=== PATIENT | male | born 1960 | race Caucasian/White ===

== ENCOUNTER 2017-04-02 05:22 | Emergency (ER) | payer OTHER ==
--- NOTE | ~2017-04-02 | ER ---
PATIENT'S NAME: RAFAEL AGUILLON [facility] AGE: 56 Y [address] ROOM: [place] [address] LOCATION: [facility] ADMIT DATE: 04/02/2017 ER/Outpatient Report DISCHARGE DATE: 04/02/2017 FAMILY PHYSICIAN: Charity Walker MD ATTENDING PHYSICIAN: Charity Sue Time of Arrival: 0521 hours. Time of Evaluation: 0545 hours. CHIEF COMPLAINT: Left wrist pain. HISTORY OF PRESENT ILLNESS: The patient is a 56-year-old male, who presents to the emergency department today with chief complaint of left wrist pain. He reports he fell approximately 24 hours prior to arrival on outstretched arm. He has pain in his left wrist. It is sharp, it is worse with movement, currently moderate in severity. Denies any head injury. No other injuries noted. He has been taking some Tylenol as well as using ice. PAST MEDICAL HISTORY: Hypertension. PAST SURGICAL HISTORY: None reported. SOCIAL HISTORY: The patient smokes a pack per day for 40 years and drinks alcohol daily. Denies any illicit drug use. ALLERGIES: NO KNOWN DRUG ALLERGIES. MEDICATIONS: Please see list. PRIMARY CARE DOCTOR: Charity Walker M.D. REVIEW OF SYSTEMS: All systems are reviewed by myself and are negative with the exception of those discussed in the HPI and past medical history. PHYSICAL EXAMINATION: VITAL SIGNS: Weight 109.8 kg. Blood pressure 157/83, pulse 87, respiratory PATIENT'S NAME: RAFAEL AGUILLON [facility] AGE: 56 Y [address] ROOM: [place] [address] LOCATION: [facility] ADMIT DATE: 04/02/2017 ER/Outpatient Report DISCHARGE DATE: 04/02/2017 FAMILY PHYSICIAN: Charity Walker MD ATTENDING PHYSICIAN: Charity Sue rate 18, temperature 97.9, and oxygen saturation 95% on room air. GENERAL: The patient is a 56-year-old male, who appears at stated age, in no acute distress at this time. HEENT: Head: Normocephalic, atraumatic. Pupils are equal, round, and reactive to light and accommodation. Extraocular motions are intact. Nares are patent bilaterally. TMs are clear. Oropharynx is clear. NECK: Supple. There is no nuchal rigidity. CARDIOVASCULAR: Regular rate and rhythm. No murmurs, rubs, or gallops. LUNGS: Clear to auscultation bilaterally. No wheezes, rales, or rhonchi. ABDOMEN: Soft, nontender, nondistended. No rebound, rigidity, or guarding. MUSCULOSKELETAL: The patient has tenderness to palpation of the left wrist with decreased range of motion. He is neurovascularly intact. Good turbine engineer strength. He does have swelling noted. SKIN: Warm and dry. He does have ecchymoses noted around the left wrist. LABORATORY DATA AND X-RAYS: Three-view x-ray of the left wrist is obtained, it is interpreted by myself, shows no acute fracture or dislocation. IMPRESSION: 1. Acute left wrist sprain with contusion. 2. Initial visit. EMERGENCY DEPARTMENT COURSE: The patient is brought back to the examination room. Seen and evaluated by myself. A 3-view x-ray is obtained as described above. I have discussed the results with the patient. The patient does have tenderness to palpation over the scaphoid. We placed him in a cock-up wrist splint. I have discussed with him that there is potential still for scaphoid fracture. He does need a repeat x-ray in 7 to 10 days. I have asked that he either follows up with Dr. Charity Walker, his primary care doctor or Orthopedic Surgery in 7 to 10 days for re-evaluation of this with the x-ray. I have discussed the risks of scaphoid fracture including avascular necrosis and severe arthritis in the future. I have stressed to him the importance of getting a repeat x-ray. I have written a prescription for Naprosyn for home. Discussed rest, ice, compression, and elevation. The patient is agreeable without further questions at this time. DISPOSITION: The patient is discharged to home in good condition. CHARITY SUE DO PATIENT'S NAME: RAFAEL AGUILLON [facility] AGE: 56 Y [address] ROOM: [place] [address] LOCATION: [facility] ADMIT DATE: 04/02/2017 ER/Outpatient Report DISCHARGE DATE: 04/02/2017 FAMILY PHYSICIAN: Charity Walker MD ATTENDING PHYSICIAN: Charity Sue/autumnl /[id number] d: [birth year]/1758 t: 04/04/17642, OUTPATIENT REPORT
== END 2017-04-02 05:57 | disposition disaster alternative care site (69) ==
LOC: GACC 05:22
PROC: 2W3DX1Z Immobilization of Left Lower Arm using Splint (ICD-10-PCS; principal; 2017-04-02)
DX: S63.502A Unspecified sprain of left wrist, initial encounter (principal); S60.212A Contusion of left wrist, initial encounter; I10 Essential (primary) hypertension; F17.210 Nicotine dependence, cigarettes, uncomplicated; Z79.899 Other long term (current) drug therapy; W19.XXXA Unspecified fall, initial encounter